=== PATIENT | male | born 1995 | race American Indian/Alaskan Native ===

== ENCOUNTER 2019-07-16 19:43 | Inpatient (IN) | payer BC ==
[2019-07-16] MEDS ORDERED: SODIUM CHLORIDE 0.9% 1000 ML 1,000 ML IV ONE ×2 (21:04→23:31)
--- NOTE | 2019-07-16 21:12 | Event Note ---
ED Screening Note Date of service: 07/16/19 Time: 21:02 ED Screening Note: 23 y o male sharan no PMH was sent here from Urgent care for glucose > 600 pt states x 2 days he has been feeling lethargic denies any pain This initial assessment/diagnostic orders/clinical plan/treatment(s) is/are subject to change based on patients health status, clinical progression and re- assessment by fellow clinical providers in the ED. Further treatment and workup at subsequent clinical providers discretion. Patient/guardian urged not to elope from the ED as their condition may be serious if not clinically assessed and managed. Initial orders include: labs, ivf main side eval
--- NOTE | 2019-07-16 21:36 | Emergency Department Report ---
ED General Adult HPI - General Chief complaint: Hyperglycemia Stated complaint: HIGH BP/HIGH SUGAR Time Seen by Provider: 07/16/19 21:33 Source: patient, family, RN notes reviewed Mode of arrival: Ambulatory Limitations: No Limitations - History of Present Illness Initial comments: During the history and physical, I am screen machine operator by nurse Yesenia Rey The patient is a 23-year-old gentleman. The patient is not known to this provider previously. The patient does not have a primary care doctor, he does not have chronic medical conditions that he is aware of. He is sent to the ER by a local urgent care center for weakness, nausea vomiting and hyperglycemia. Patient endorses thirst, weakness, cramping, constipation, malaise and fatigue. Symptoms constant, getting worse, do not have exacerbating or relieving factors that he is aware of. He does not have a history of diabetes that he is aware of. He states that he is "too weak to talk." He then states that he is thirsty. -: Gradual, days(s) Consistency: constant Improves with: other Worsens with: other - Related Data Allergies Allergy/AdvReac Type Severity Reaction Status Date / Time No Known Allergies Allergy Unverified 07/16/19 21:39 ED Review of Systems ROS: Stated complaint: HIGH BP/HIGH SUGAR Other details as noted in HPI Constitutional: malaise Eyes: denies: eye discharge ENT: denies: congestion Respiratory: denies: wheezing Cardiovascular: denies: syncope Gastrointestinal: nausea Genitourinary: denies: dysuria Musculoskeletal: myalgia Neurological: weakness ED Past Medical Hx - Past Medical History Previous Medical History?: No - Surgical History Past Surgical History?: No - Social History Smoking Status: Unknown if ever smoked ED Physical Exam - General Limitations: Physical Limitation General appearance: alert, anxious, obese - Head Head exam: Present: atraumatic, normocephalic - Eye Eye exam: Present: normal appearance, EOMI. Absent: nystagmus - ENT ENT exam: Present: normal exam, mucous membranes dry, normal external ear exam - Neck Neck exam: Present: normal inspection, full ROM. Absent: tenderness, meningismus - Respiratory Respiratory exam: Present: normal lung sounds bilaterally. Absent: respiratory distress - Cardiovascular Cardiovascular Exam: Present: normal rhythm, tachycardia, normal heart sounds. Absent: systolic murmur, diastolic murmur, rubs, gallop - GI/Abdominal GI/Abdominal exam: Present: soft. Absent: distended, tenderness, guarding, rebound, rigid, pulsatile mass - Rectal Rectal exam: Present: deferred - Extremities Exam Extremities exam: Present: normal inspection, full ROM. Absent: pedal edema - Back Exam Back exam: Present: normal inspection. Absent: tenderness, CVA tenderness (R), CVA tenderness (L), paraspinal tenderness, vertebral tenderness - Neurological Exam Neurological exam: Present: alert, other (there is no facial droop. The tongue is midline. The extraocular movements are intact bilaterally. Speaking in full sentences. Minimal elevation of the base of the tongue. There is 5 out of 5 strength in the bilateral upper and lower extremities, and sensation is intact to light touch in the bilateral upper and lower extremities. Appropriate insight.) - Psychiatric Psychiatric exam: Present: flat affect - Skin Skin exam: Present: warm, dry, intact, normal color. Absent: rash ED Course Vital Signs 07/16/19 21:09 Temperature 98.2 F Pulse Rate 129 H Respiratory 20 Rate Blood Pressure 155/105 [Right] O2 Sat by Pulse 95 Oximetry ED Medical Decision Making - Lab Data Result diagrams: 07/16/19 21:36 07/16/19 21:36 Vital Signs 07/16/19 21:09 Temperature 98.2 F Pulse Rate 129 H Respiratory 20 Rate Blood Pressure 155/105 [Right] O2 Sat by Pulse 95 Oximetry Lab Results 07/16/19 07/16/19 07/16/19 Range/Units 21:12 21:36 21:36 WBC 14.2 H (4.5-11.0) K/mm3 RBC 6.64 H (3.65-5.03) M/mm3 Hgb 17.2 H (11.8-15.2) gm/dl Hct 57.5 H (35.5-45.6) % MCV 87 (84-94) fl MCH 26 L (28-32) pg MCHC 30 L (32-34) % RDW 15.9 H (13.2-15.2) % Plt Count 301 (140-440) K/mm3 Lymph % (Auto) 8.3 L (13.4-35.0) % [place] % (Auto) 5.6 (0.0-7.3) % Eos % (Auto) 0.0 (0.0-4.3) % Baso % (Auto) 0.5 (0.0-1.8) % Lymph # 1.2 (1.2-5.4) K/mm3 [place] # 0.8 (0.0-0.8) K/mm3 Eos # 0.0 (0.0-0.4) K/mm3 Baso # 0.1 (0.0-0.1) K/mm3 Seg Neutrophils % 85.6 H (40.0-70.0) % Seg Neutrophils # 12.2 H (1.8-7.7) K/mm3 VBG pH (7.320-7.420) Sodium 135 L (137-145) mmol/L Potassium 5.5 H (3.6-5.0) mmol/L Chloride 87.6 L (98-107) mmol/L Carbon Dioxide 12 L (22-30) mmol/L Anion Gap 41 mmol/L BUN 45 H (9-20) mg/dL Creatinine 2.6 H (0.8-1.5) mg/dL Estimated GFR 31 ml/min BUN/Creatinine Ratio 17 % Glucose 1296 H* (75-100) mg/dL POC Glucose > 500 H (70-105) Calcium 10.8 H (8.4-10.2) mg/dL Magnesium (1.7-2.3) mg/dL Total Bilirubin 0.30 (0.1-1.2) mg/dL AST 35 (5-40) units/L ALT 44 (7-56) units/L Alkaline Phosphatase 144 H (35-129) units/L Total Creatine Kinase (55-170) units/L Total Protein 9.8 H (6.3-8.2) g/dL Albumin 4.9 (3.9-5) g/dL Albumin/Globulin Ratio 1.0 % Lipase (13-60) units/L 07/16/19 07/16/19 07/16/19 Range/Units 21:36 21:36 21:52 WBC (4.5-11.0) K/mm3 RBC (3.65-5.03) M/mm3 Hgb (11.8-15.2) gm/dl Hct (35.5-45.6) % MCV (84-94) fl MCH (28-32) pg MCHC (32-34) % RDW (13.2-15.2) % Plt Count (140-440) K/mm3 Lymph % (Auto) (13.4-35.0) % [place] % (Auto) (0.0-7.3) % Eos % (Auto) (0.0-4.3) % Baso % (Auto) (0.0-1.8) % Lymph # (1.2-5.4) K/mm3 [place] # (0.0-0.8) K/mm3 Eos # (0.0-0.4) K/mm3 Baso # (0.0-0.1) K/mm3 Seg Neutrophils % (40.0-70.0) % Seg Neutrophils # (1.8-7.7) K/mm3 VBG pH 7.276 L (7.320-7.420) Sodium (137-145) mmol/L Potassium (3.6-5.0) mmol/L Chloride (98-107) mmol/L Carbon Dioxide (22-30) mmol/L Anion Gap mmol/L BUN (9-20) mg/dL Creatinine (0.8-1.5) mg/dL Estimated GFR ml/min BUN/Creatinine Ratio % Glucose (75-100) mg/dL POC Glucose (70-105) Calcium (8.4-10.2) mg/dL Magnesium 4.00 H (1.7-2.3) mg/dL Total Bilirubin (0.1-1.2) mg/dL AST (5-40) units/L ALT (7-56) units/L Alkaline Phosphatase (35-129) units/L Total Creatine Kinase 827 H (55-170) units/L Total Protein (6.3-8.2) g/dL Albumin (3.9-5) g/dL Albumin/Globulin Ratio % Lipase 38 (13-60) units/L - EKG Data -: EKG Interpreted by Ks EKG shows normal: sinus rhythm Rate: tachycardia - EKG Data When compared to previous EKG there are: previous EKG unavailable 07/16/19 23:05 There is no prior EKG available for comparison. The EKG shows a sinus tachycardia, left axis deviation, atrial enlargement, high left ventricular voltage, the EKG is abnormal, it is not consistent with ST elevation myocardial infarction. - Medical Decision Making Differential diagnosis, including but not limited to: Diabetic ketoacidosis, diabetes with hyperosmolar state, dehydration, prerenal insufficiency Assessment and plan: 23-year-old gentleman found to be in diabetic ketoacidosis, manifest by acidotic venous pH, anion gap acidosis, glucose greater than 1200. Patient critically ill, meets criteria for hospitalization. IV fluids, insulin drip ordered. Discussed plan of care for admission with patient and family who verbalized understanding and who are amenable to this plan of care. Extensive discussion had with patient and family regarding need for diet and left cell modifications, once initial stabilization has taken place. Family verbalizes understanding. Hyperkalemia reviewed and appreciated, this will improve with fluids and with insulin therapy. Hospital physician, Dr. William to admit patient to the medical service. Critical Care Time: Yes Critical care time in (mins) excluding proc time.: 35 Critical care attestation.: If time is entered above; I have spent that time in minutes in the direct care of this critically ill patient, excluding procedure time. ED Disposition Clinical Impression: DKA (diabetic ketoacidoses), CHERISE (acute kidney injury) Disposition: DC-09 OP ADMIT IP TO THIS HOSP Is pt being admited?: Yes Does the pt Need Aspirin: No Condition: Critical Instructions: Diabetic Ketoacidosis (ED)
[2019-07-16 21:49] LABS: Basophils # (Auto) 0.1 K/mm3 (0.0-0.1); Basophils % (Auto) 0.5 % (0.0-1.8); Lymphocytes # (Auto) 1.2 K/mm3 (1.2-5.4); Lymphocytes % (Auto) 8.3 % (13.4-35.0); Mean Corpuscular HGB Conc 30 % (32-34); Mean Corpuscular Volume 87 fl (84-94); Monocytes # (Auto) 0.8 K/mm3 (0.0-0.8); Monocytes % (Auto) 5.6 % (0.0-7.3); Platelet Count 301 K/mm3 (140-440); Red Blood Count 6.64 M/mm3 (3.65-5.03); Red Cell Distribution Width 15.9 % (13.2-15.2)
[2019-07-16 21:55] LABS: Hematocrit 57.5 % (35.5-45.6); Hemoglobin 17.2 gm/dl (11.8-15.2)
[2019-07-16 22:11] LABS: Albumin 4.9 g/dL (3.9-5); Calcium 10.8 mg/dL (8.4-10.2)
[2019-07-16] MEDS ORDERED: SODIUM CHLORIDE 0.9% 1000 ML 2,000 ML IV ONE (22:58)
[2019-07-16] MEDS ORDERED: INSULIN REGULAR, HUMAN 100 UNITS/1 ML IV ONE (22:59)
[2019-07-16] MEDS ORDERED: DEXTROSE 50% IN WATER (25GM) 50 ML SYRINGE IV PRN (22:59)
[2019-07-16] MEDS ORDERED: ACETAMINOPHEN 325 MG TAB PO PRN (23:29)
[2019-07-16] MEDS ORDERED: ONDANSETRON 4 MG/2 ML INJ IV PRN (23:29)
[2019-07-16] MEDS ORDERED: SODIUM CHLORIDE 0.9% 1000 ML 1,000 ML IV SCH (23:30)
--- NOTE | 2019-07-16 23:39 | History and Physical Report ---
History of Present Illness Date of examination: 07/16/19 History of present illness: 23-year-old man with obesity comes emergency room with complaints of generalized weakness x2 weeks. Also complains of nausea vomiting, frequent urination, dry mouth, increased thirst and decreased appetite. He admits to weight loss but unable to quantify, also admits to blurry vision. Patient was found to have new onset diabetes/dka and is being admitted for further management Review of systems Constitutional: no weight loss, chills, fever Ears, eyes, nose, mouth and throat: no nasal congestion, no nasal discharge, no sinus pressure, no vision change, no red eye. Neck: No neck pain or rigidity. Cardiovascular: no palpitations, chest pain Respiratory: no cough, shortness of breath Gastrointestinal: no hematochezia, abdominal pain Genitourinary : no frequency , no hematuria Musculoskeletal: no joint swelling or muscle ache Integumentary: no rash, no pruritis Neurological: no parathesias, no focal weakness Endocrine: no cold or heat intolerance, no polyuria or polydipsia Hematologic/Lymphatic: no easy bruising, no easy bleeding, no gland swelling Allergic/Immunologic: no urticaria, no angioedema. PAST MEDICAL HISTORY: obesity PAST SURGICAL HISTORY: None SOCIAL HISTORY: Denies alcohol, drugs, tobacco FAMILY HISTORY: Hypertension, diabetes Medications and Allergies Allergies Allergy/AdvReac Type Severity Reaction Status Date / Time No Known Allergies Allergy Unverified 07/16/19 21:39 Home Medications Medication Instructions Recorded Confirmed Last Taken Type No Known Home Medications [No 07/17/19 07/17/19 Unknown History Reported Home Medications] Active Meds: Active Medications Acetaminophen (Tylenol) 650 mg PO Q4H PRN PRN Reason: Pain MILD(1-3)/Fever >100.5/WANG Dextrose (D50w (25gm) Syringe) 0 ml IV Q30MIN PRN; Protocol PRN Reason: Hypoglycemia Enoxaparin Sodium (Enoxaparin) 30 mg SUB-Q QDAY MARIAA Insulin Human Regular 100 (units/ Sodium Chloride) 100 mls @ 1 mls/hr IV TITR MARIAA; Protocol Sodium Chloride (Nacl 0.9% 1000 Ml) 1,000 mls @ 150 mls/hr IV DIRECT MARIAA Dextrose/Sodium Chloride (D5/0.45ns) 1,000 mls @ 150 mls/hr IV DIRECT MARIAA Sodium Chloride (Nacl 0.9% 1000 Ml) 1,000 mls @ 999 mls/hr IV ONCE ONE Stop: 07/17/19 00:31 Ondansetron HCl (Zofran) 4 mg IV Q8H PRN PRN Reason: Nausea And Vomiting Sodium Chloride (Sodium Chloride Flush Syringe 10 Ml) 10 ml IV PRN NR Stop: 07/17/19 22:59 Sodium Chloride (Sodium Chloride Flush Syringe 10 Ml) 10 ml IV BID MARIAA Sodium Chloride (Sodium Chloride Flush Syringe 10 Ml) 10 ml IV PRN PRN PRN Reason: LINE FLUSH Exam - Physical Exam Narrative exam: General Apperance: The patient lying in bed, breathing comfortable HEENT: Normocephalic, atraumatic. Pupils equally round and reactive to light, EOMI, no sclericterus or JVD or thyromegaly or nodule. , no carotid bruit, mucous membranes dry, no exudate or erythema Heart: S1-S2, regular is rhythm Lungs: clear bilaterally, breathing comfortable Abdomen: Positive bowel sounds, soft, nontender, nondistended, no organomegaly Extremities: amputation of the left forearm, No edema cyanosis clubbing Skin: no rash, nodule, warm and dry Neuro: cranial nerves 2-12 intact, speech is fluent, motor/sensory intact - Constitutional Vitals: Temp Pulse Resp BP Pulse Ox 98.2 F 111 H 18 150/94 94 07/16/19 21:09 07/16/19 23:15 07/16/19 23:15 07/16/19 23:15 07/16/19 23:15 Results - Labs CBC & Chem 7: 07/16/19 21:36 07/17/19 00:55 Labs: Abnormal lab results 07/16/19 07/16/19 07/16/19 Range/Units 21:12 21:36 21:36 WBC 14.2 H (4.5-11.0) K/mm3 RBC 6.64 H (3.65-5.03) M/mm3 Hgb 17.2 H (11.8-15.2) gm/dl Hct 57.5 H (35.5-45.6) % MCH 26 L (28-32) pg MCHC 30 L (32-34) % RDW 15.9 H (13.2-15.2) % Lymph % (Auto) 8.3 L (13.4-35.0) % Seg Neutrophils % 85.6 H (40.0-70.0) % Seg Neutrophils # 12.2 H (1.8-7.7) K/mm3 VBG pH (7.320-7.420) Sodium 135 L (137-145) mmol/L Potassium 5.5 H (3.6-5.0) mmol/L Chloride 87.6 L (98-107) mmol/L Carbon Dioxide 12 L (22-30) mmol/L BUN 45 H (9-20) mg/dL Creatinine 2.6 H (0.8-1.5) mg/dL Glucose 1296 H* (75-100) mg/dL POC Glucose > 500 H (70-105) Calcium 10.8 H (8.4-10.2) mg/dL Magnesium (1.7-2.3) mg/dL Alkaline Phosphatase 144 H (35-129) units/L Total Creatine Kinase (55-170) units/L Total Protein 9.8 H (6.3-8.2) g/dL 07/16/19 07/16/19 07/16/19 Range/Units 21:36 21:36 21:52 WBC (4.5-11.0) K/mm3 RBC (3.65-5.03) M/mm3 Hgb (11.8-15.2) gm/dl Hct (35.5-45.6) % MCH (28-32) pg MCHC (32-34) % RDW (13.2-15.2) % Lymph % (Auto) (13.4-35.0) % Seg Neutrophils % (40.0-70.0) % Seg Neutrophils # (1.8-7.7) K/mm3 VBG pH 7.276 L (7.320-7.420) Sodium (137-145) mmol/L Potassium (3.6-5.0) mmol/L Chloride (98-107) mmol/L Carbon Dioxide (22-30) mmol/L BUN (9-20) mg/dL Creatinine (0.8-1.5) mg/dL Glucose (75-100) mg/dL POC Glucose (70-105) Calcium (8.4-10.2) mg/dL Magnesium 4.00 H (1.7-2.3) mg/dL Alkaline Phosphatase (35-129) units/L Total Creatine Kinase 827 H (55-170) units/L Total Protein (6.3-8.2) g/dL Assessment and Plan Assessment DKA /new onset diabetes/Metabolic acidosis Start DKA protocol with insulin drip, IV fluid Monitor serial chemistries, check hemoglobin A1c Consult critical care, dietitian Elevated blood pressure without a history of hypertension Start IV hydralazine as needed If consistently elevated, start antihypertensive Acute renal insufficiency Continue IV fluid, monitor kidney function Hyperkalemia On insulin drip, monitor potassium level Leukocytosis Most likely stress-induced, monitor
[2019-07-16] MEDS ORDERED: D5W/0.45% NACL 1,000 ML IV SCH (23:45)
[2019-07-16] MEDS: INSULIN REGULAR, HUMAN 100 UNITS in SODIUM CHLORIDE 0.9% 99 ML IV SCH (23:52)
[2019-07-17 00:17] LABS: Bacteria,Urine 1+ /HPF (Negative); Bilirubin,Urine NEG (Negative); Blood,Urine LG (Negative); Color,Urine Straw (Yellow); Mucus,Urine FEW /HPF; Urobilinogen,Urine < 2.0 mg/dL (<2.0)
[2019-07-17 00:30] LABS: Calcium 10.3 mg/dL (8.4-10.2)
[2019-07-17] MEDS ORDERED: hydrALAZINE 20 MG/1 ML INJ IV PRN ×2 (00:41→00:52)
[2019-07-17] MEDS ORDERED: SODIUM CHLORIDE 0.9% 1000 ML 2,000 ML ONE (00:45)
[2019-07-17] MEDS: INSULIN REGULAR, HUMAN 100 UNITS in SODIUM CHLORIDE 0.9% 99 ML IV SCH ×2 (01:10→13:14)
[2019-07-17] MEDS ORDERED: hydrALAZINE 20 MG/1 ML INJ ONE (01:31)
[2019-07-17 03:23] LABS: Calcium 9.6 mg/dL (8.4-10.2)
[2019-07-17 06:47] LABS: BUN/Creatinine Ratio 8; Blood Urea Nitrogen 9 mg/dL (9-20); Hemolysis Index 6
[2019-07-17 08:24] LABS: BUN/Creatinine Ratio 16; Blood Urea Nitrogen 28 mg/dL (9-20); Hemolysis Index 5
--- NOTE | 2019-07-17 09:04 | Progress Note ---
Assessment and Plan Assessment and plan: Patient is a 23 yo man without any chronic medical problems who presents to [facility] ED with polyuria, polydipsia and polyphagia. He was found to have new onset uncontrolled DM resulting in DKA. Hemoglobin A1C is 12.5 DKA /new onset diabetes/Metabolic acidosis Start DKA protocol with insulin drip, IV fluid Monitor serial chemistries, check hemoglobin A1c Consult critical care, dietitian Elevated blood pressure without a history of hypertension Start IV hydralazine as needed If consistently elevated, start antihypertensive Acute renal insufficiency, vasomotor nephropathy Continue IV fluid, monitor kidney function Hyperkalemia On insulin drip, monitor potassium level SIRS, non infectious without organ dysfunction, poa with suspected reactive Leukocytosis and tachycardia check CXR blood culture UA was negative for infection Obesity, bmi 35.7 lifestyle modifications education done Hyponatremia due to hyperglycemia on IV, monitor bmp closely Issues: last BMP may not be accurate because in 2 hours the sodium level jumped from 132 to 160. Await repeat labs. Leukocytosis should be worked up to rule out infection. CCT 32 minutes History Interval history: Patient was seen and examined. Follow-up on current diagnosis of DKA. No overnight events reported to me. Patient denies any chest pain, shortness breath, nausea/vomiting or severe headaches. Imaging, nursing note, chart, labs and old chart reviewed. Discussed with patient. Hospitalist Physical - Physical exam Narrative exam: Gen: WDWN, NAD, Awake, Alert, Orientated HEENT: NCAT, EOMI, PERRL, OP Clear Neck: supple, no adenopathy, no thyromegaly, no JVD CVS/Heart: Regular tachycardia, normal S1S2, pulses present bilaterally Chest/Lungs: CTA B, Symmetrical chest expansion, good air entry bilaterally GI/Abdomen: soft, NTND, good bowel sounds, no guarding or rebound /Bladder: no suprapubic tenderness, no CVA or paraspinal tenderness Extermity/Skin: no c/c/e, no obvious rash MSK: FROM x 4 Neuro: CN 2-12 grossly intact, no new focal deficits Psych: calm - Constitutional Vitals: Temp Pulse Resp BP Pulse Ox 98.2 F 123 H 14 157/107 99 07/17/19 02:50 07/17/19 06:01 07/17/19 06:01 07/17/19 06:01 07/17/19 08:13 Results - Labs CBC & Chem 7: 07/16/19 21:36 07/17/19 14:35 Labs: Laboratory Last Values WBC 14.2 K/mm3 (4.5-11.0) H 07/16/19 21:36 RBC 6.64 M/mm3 (3.65-5.03) H 07/16/19 21:36 Hgb 17.2 gm/dl (11.8-15.2) H 07/16/19 21:36 Hct 57.5 % (35.5-45.6) H 07/16/19 21:36 MCV 87 fl (84-94) 07/16/19 21:36 MCH 26 pg (28-32) L 07/16/19 21:36 MCHC 30 % (32-34) L 07/16/19 21:36 RDW 15.9 % (13.2-15.2) H 07/16/19 21:36 Plt Count 301 K/mm3 (140-440) 07/16/19 21:36 Lymph % (Auto) 8.3 % (13.4-35.0) L 07/16/19 21:36 [place] % (Auto) 5.6 % (0.0-7.3) 07/16/19 21:36 Eos % (Auto) 0.0 % (0.0-4.3) 07/16/19 21:36 Baso % (Auto) 0.5 % (0.0-1.8) 07/16/19 21:36 Lymph # 1.2 K/mm3 (1.2-5.4) 07/16/19 21:36 [place] # 0.8 K/mm3 (0.0-0.8) 07/16/19 21:36 Eos # 0.0 K/mm3 (0.0-0.4) 07/16/19 21:36 Baso # 0.1 K/mm3 (0.0-0.1) 07/16/19 21:36 Seg Neutrophils % 85.6 % (40.0-70.0) H 07/16/19 21:36 Seg Neutrophils # 12.2 K/mm3 (1.8-7.7) H 07/16/19 21:36 VBG pH 7.276 (7.320-7.420) L 07/16/19 21:36 Sodium 160 mmol/L (137-145) H D 07/17/19 07:10 Potassium 4.2 mmol/L (3.6-5.0) 07/17/19 07:10 Chloride 123.7 mmol/L (98-107) H 07/17/19 07:10 Carbon Dioxide 20 mmol/L (22-30) L 07/17/19 07:10 Anion Gap 21 mmol/L 07/17/19 07:10 BUN 28 mg/dL (9-20) H 07/17/19 07:10 Creatinine 1.7 mg/dL (0.8-1.5) H 07/17/19 07:10 Estimated GFR > 60 ml/min 07/17/19 07:10 BUN/Creatinine Ratio 16 % 07/17/19 07:10 Glucose 340 mg/dL (75-100) H 07/17/19 07:10 POC Glucose 231 (70-105) H 07/17/19 09:07 Hemoglobin A1c 12.5 % (4-6) H 07/16/19 23:46 Calcium 10.0 mg/dL (8.4-10.2) 07/17/19 07:10 Phosphorus 2.30 mg/dL (2.5-4.5) L D 07/17/19 05:09 Magnesium 3.40 mg/dL (1.7-2.3) H 07/17/19 05:09 Total Bilirubin 0.30 mg/dL (0.1-1.2) 07/16/19 21:36 AST 35 units/L (5-40) 07/16/19 21:36 ALT 44 units/L (7-56) 07/16/19 21:36 Alkaline Phosphatase 144 units/L (35-129) H 07/16/19 21:36 Total Creatine Kinase 827 units/L (55-170) H 07/16/19 21:36 Total Protein 9.8 g/dL (6.3-8.2) H 07/16/19 21:36 Albumin 4.9 g/dL (3.9-5) 07/16/19 21:36 Albumin/Globulin Ratio 1.0 % 07/16/19 21:36 Lipase 38 units/L (13-60) 07/16/19 21:36 Urine Color Straw (Yellow) 07/16/19 23:07 Urine Turbidity Clear (Clear) 07/16/19 23:07 Urine pH 5.0 (5.0-7.0) 07/16/19 23:07 Ur Specific [place] 1.028 (1.003-1.030) 07/16/19 23:07 Urine Protein 100 mg/dl mg/dL (Negative) 07/16/19 23:07 Urine Glucose (UA) >=500 mg/dL (Negative) 07/16/19 23:07 Urine Ketones Tr mg/dL (Negative) 07/16/19 23:07 Urine Blood Lg (Negative) 07/16/19 23:07 Urine Nitrite Neg (Negative) 07/16/19 23:07 Urine Bilirubin Neg (Negative) 07/16/19 23:07 Urine Urobilinogen < 2.0 mg/dL (<2.0) 07/16/19 23:07 Ur Leukocyte Esterase Neg (Negative) 07/16/19 23:07 Urine WBC (Auto) 1.0 /HPF (0.0-6.0) 07/16/19 23:07 Urine RBC (Auto) 5.0 /HPF (0.0-6.0) 07/16/19 23:07 Urine Bacteria (Auto) 1+ /HPF (Negative) 07/16/19 23:07 Urine Mucus Few /HPF 07/16/19 23:07 Active Medications - Current Medications Current Medications: Generic Name Dose Route Start Last Admin Trade Name Freq PRN Reason Stop Dose Admin Acetaminophen 650 mg 07/16/19 23:29 Tylenol PO Q4H PRN Pain MILD(1-3)/Fever >100.5/WANG Dextrose 0 ml 07/16/19 22:59 D50w (25gm) Syringe IV Q30MIN PRN Hypoglycemia Protocol Hydralazine HCl 5 mg 07/17/19 00:52 07/17/19 01:30 Apresoline IV 5 mg Q6H PRN Administration Hypertension Insulin Human Regular 100 100 mls @ 1 mls/hr 07/16/19 23:00 07/17/19 08:58 units/ Sodium Chloride IV 5 units/hr TITR MARIAA 5 mls/hr Titration Protocol 1 UNITS/HR Sodium Chloride 1,000 mls @ 150 mls/hr 07/16/19 23:30 07/17/19 03:35 Nacl 0.9% 1000 Ml IV 150 mls/hr DIRECT MARIAA Administration Dextrose/Sodium Chloride 1,000 mls @ 150 mls/hr 07/16/19 23:45 D5/0.45ns IV DIRECT MARIAA Ondansetron HCl 4 mg 07/16/19 23:29 Zofran IV Q8H PRN Nausea And Vomiting Sodium Chloride 10 ml 07/16/19 23:00 Sodium Chloride Flush Syringe 10 Ml IV 07/17/19 22:59 PRN NR Sodium Chloride 10 ml 07/17/19 10:00 Sodium Chloride Flush Syringe 10 Ml IV BID AMRIAA Sodium Chloride 10 ml 07/16/19 23:29 Sodium Chloride Flush Syringe 10 Ml IV PRN PRN LINE FLUSH
[2019-07-17] MEDS ORDERED: ENOXAPARIN 40 MG/0.4 ML INJ SUB-Q SCH (10:00)
[2019-07-17] MEDS ORDERED: POTASSIUM CHLORIDE IV SCH (11:00)
[2019-07-17] MEDS ORDERED: WATER IV SCH (11:00)
[2019-07-17] MEDS ORDERED: DEXTROSE 5% IV SCH (11:00)
--- NOTE | 2019-07-17 11:09 | Consultation ---
History of Present Illness - Reason for Consult Consult date: 07/17/19 DKA Requesting physician: ASHISH AYERS - History of Present Illness 23 y/o male with newly diagnosed diabetes admitted with DKA. No further history. Past History Past Medical History: other Past Surgical History: Other Social history: other Family history: other Medications and Allergies Allergies Allergy/AdvReac Type Severity Reaction Status Date / Time No Known Allergies Allergy Unverified 07/16/19 21:39 Home Medications Medication Instructions Recorded Confirmed Last Taken Type No Known Home Medications [No 07/17/19 07/17/19 Unknown History Reported Home Medications] Active Meds: Active Medications Acetaminophen (Tylenol) 650 mg PO Q4H PRN PRN Reason: Pain MILD(1-3)/Fever >100.5/WANG Dextrose (D50w (25gm) Syringe) 0 ml IV Q30MIN PRN; Protocol PRN Reason: Hypoglycemia Hydralazine HCl (Apresoline) 5 mg IV Q6H PRN PRN Reason: Hypertension Last Admin: 07/17/19 01:30 Dose: 5 mg Documented by: Insulin Human Regular 100 (units/ Sodium Chloride) 100 mls @ 1 mls/hr IV TITR MARIAA; Protocol Last Titration: 07/17/19 10:00 Dose: 4 units/hr, 4 mls/hr Documented by: Sodium Chloride (Nacl 0.9% 1000 Ml) 1,000 mls @ 150 mls/hr IV DIRECT MARIAA Last Infusion: 07/17/19 10:20 Dose: Infused Documented by: Potassium Chloride 10 meq/ (Dextrose) 1,005 mls @ 125 mls/hr IV DIRECT MARIAA Ondansetron HCl (Zofran) 4 mg IV Q8H PRN PRN Reason: Nausea And Vomiting Sodium Chloride (Sodium Chloride Flush Syringe 10 Ml) 10 ml IV PRN NR Stop: 07/17/19 22:59 Sodium Chloride (Sodium Chloride Flush Syringe 10 Ml) 10 ml IV BID MARIAA Sodium Chloride (Sodium Chloride Flush Syringe 10 Ml) 10 ml IV PRN PRN PRN Reason: LINE FLUSH Review of Systems All systems: negative Exam - Constitutional Vitals: Temp Pulse Resp BP Pulse Ox 98.2 F 123 H 14 157/107 99 07/17/19 02:50 07/17/19 06:01 07/17/19 06:01 07/17/19 06:01 07/17/19 08:13 General appearance: Present: no acute distress, well-nourished - EENT Eyes: Present: PERRL, EOM intact ENT: hearing intact, clear oral mucosa, dentition normal - Neck Neck: Present: supple, normal ROM - Respiratory Respiratory effort: normal Respiratory: bilateral: CTA - Cardiovascular Rhythm: regular Heart Sounds: Present: S1 & S2 - Extremities Extremities: no ischemia - Abdominal General gastrointestinal: Present: soft, normal bowel sounds Male genitourinary: Present: deferred - Rectal Rectal Exam: deferred - Musculoskeletal Musculoskeletal: strength equal bilaterally Results - Labs CBC & Chem 7: 07/16/19 21:36 07/17/19 07:10 Labs: Abnormal lab results 07/16/19 07/16/19 07/16/19 Range/Units 21:12 21:36 21:36 WBC 14.2 H (4.5-11.0) K/mm3 RBC 6.64 H (3.65-5.03) M/mm3 Hgb 17.2 H (11.8-15.2) gm/dl Hct 57.5 H (35.5-45.6) % MCH 26 L (28-32) pg MCHC 30 L (32-34) % RDW 15.9 H (13.2-15.2) % Lymph % (Auto) 8.3 L (13.4-35.0) % Seg Neutrophils % 85.6 H (40.0-70.0) % Seg Neutrophils # 12.2 H (1.8-7.7) K/mm3 VBG pH (7.320-7.420) Sodium 135 L (137-145) mmol/L Potassium 5.5 H (3.6-5.0) mmol/L Chloride 87.6 L (98-107) mmol/L Carbon Dioxide 12 L (22-30) mmol/L BUN 45 H (9-20) mg/dL Creatinine 2.6 H (0.8-1.5) mg/dL Glucose 1296 H* (75-100) mg/dL POC Glucose > 500 H (70-105) Hemoglobin A1c (4-6) % Calcium 10.8 H (8.4-10.2) mg/dL Phosphorus (2.5-4.5) mg/dL Magnesium (1.7-2.3) mg/dL Alkaline Phosphatase 144 H (35-129) units/L Total Creatine Kinase (55-170) units/L Total Protein 9.8 H (6.3-8.2) g/dL 07/16/19 07/16/19 07/16/19 Range/Units 21:36 21:36 21:52 WBC (4.5-11.0) K/mm3 RBC (3.65-5.03) M/mm3 Hgb (11.8-15.2) gm/dl Hct (35.5-45.6) % MCH (28-32) pg MCHC (32-34) % RDW (13.2-15.2) % Lymph % (Auto) (13.4-35.0) % Seg Neutrophils % (40.0-70.0) % Seg Neutrophils # (1.8-7.7) K/mm3 VBG pH 7.276 L (7.320-7.420) Sodium (137-145) mmol/L Potassium (3.6-5.0) mmol/L Chloride (98-107) mmol/L Carbon Dioxide (22-30) mmol/L BUN (9-20) mg/dL Creatinine (0.8-1.5) mg/dL Glucose (75-100) mg/dL POC Glucose (70-105) Hemoglobin A1c (4-6) % Calcium (8.4-10.2) mg/dL Phosphorus (2.5-4.5) mg/dL Magnesium 4.00 H (1.7-2.3) mg/dL Alkaline Phosphatase (35-129) units/L Total Creatine Kinase 827 H (55-170) units/L Total Protein (6.3-8.2) g/dL 07/16/19 07/16/19 07/16/19 Range/Units 23:46 23:46 23:46 WBC (4.5-11.0) K/mm3 RBC (3.65-5.03) M/mm3 Hgb (11.8-15.2) gm/dl Hct (35.5-45.6) % MCH (28-32) pg MCHC (32-34) % RDW (13.2-15.2) % Lymph % (Auto) (13.4-35.0) % Seg Neutrophils % (40.0-70.0) % Seg Neutrophils # (1.8-7.7) K/mm3 VBG pH (7.320-7.420) Sodium (137-145) mmol/L Potassium 6.0 H (3.6-5.0) mmol/L Chloride 97.5 L (98-107) mmol/L Carbon Dioxide 11 L (22-30) mmol/L BUN 44 H (9-20) mg/dL Creatinine 2.6 H (0.8-1.5) mg/dL Glucose 1057 H* (75-100) mg/dL POC Glucose (70-105) Hemoglobin A1c 12.5 H (4-6) % Calcium 10.3 H (8.4-10.2) mg/dL Phosphorus 6.30 H (2.5-4.5) mg/dL Magnesium 3.80 H (1.7-2.3) mg/dL Alkaline Phosphatase (35-129) units/L Total Creatine Kinase (55-170) units/L Total Protein (6.3-8.2) g/dL 07/17/19 07/17/19 07/17/19 Range/Units 00:55 01:04 02:49 WBC (4.5-11.0) K/mm3 RBC (3.65-5.03) M/mm3 Hgb (11.8-15.2) gm/dl Hct (35.5-45.6) % MCH (28-32) pg MCHC (32-34) % RDW (13.2-15.2) % Lymph % (Auto) (13.4-35.0) % Seg Neutrophils % (40.0-70.0) % Seg Neutrophils # (1.8-7.7) K/mm3 VBG pH (7.320-7.420) Sodium 149 H (137-145) mmol/L Potassium (3.6-5.0) mmol/L Chloride 108.4 H (98-107) mmol/L Carbon Dioxide 13 L (22-30) mmol/L BUN 38 H (9-20) mg/dL Creatinine 2.2 H (0.8-1.5) mg/dL Glucose 710 H* (75-100) mg/dL POC Glucose > 500 H 492 H (70-105) Hemoglobin A1c (4-6) % Calcium (8.4-10.2) mg/dL Phosphorus (2.5-4.5) mg/dL Magnesium (1.7-2.3) mg/dL Alkaline Phosphatase (35-129) units/L Total Creatine Kinase (55-170) units/L Total Protein (6.3-8.2) g/dL 07/17/19 07/17/19 07/17/19 Range/Units 04:09 05:00 05:09 WBC (4.5-11.0) K/mm3 RBC (3.65-5.03) M/mm3 Hgb (11.8-15.2) gm/dl Hct (35.5-45.6) % MCH (28-32) pg MCHC (32-34) % RDW (13.2-15.2) % Lymph % (Auto) (13.4-35.0) % Seg Neutrophils % (40.0-70.0) % Seg Neutrophils # (1.8-7.7) K/mm3 VBG pH (7.320-7.420) Sodium 132 L D (137-145) mmol/L Potassium (3.6-5.0) mmol/L Chloride (98-107) mmol/L Carbon Dioxide 20 L D (22-30) mmol/L BUN (9-20) mg/dL Creatinine (0.8-1.5) mg/dL Glucose 114 H (75-100) mg/dL POC Glucose 483 H (70-105) Hemoglobin A1c (4-6) % Calcium (8.4-10.2) mg/dL Phosphorus 2.30 L D (2.5-4.5) mg/dL Magnesium (1.7-2.3) mg/dL Alkaline Phosphatase (35-129) units/L Total Creatine Kinase (55-170) units/L Total Protein (6.3-8.2) g/dL 07/17/19 07/17/19 07/17/19 Range/Units 05:09 05:33 06:03 WBC (4.5-11.0) K/mm3 RBC (3.65-5.03) M/mm3 Hgb (11.8-15.2) gm/dl Hct (35.5-45.6) % MCH (28-32) pg MCHC (32-34) % RDW (13.2-15.2) % Lymph % (Auto) (13.4-35.0) % Seg Neutrophils % (40.0-70.0) % Seg Neutrophils # (1.8-7.7) K/mm3 VBG pH (7.320-7.420) Sodium (137-145) mmol/L Potassium (3.6-5.0) mmol/L Chloride (98-107) mmol/L Carbon Dioxide (22-30) mmol/L BUN (9-20) mg/dL Creatinine (0.8-1.5) mg/dL Glucose (75-100) mg/dL POC Glucose 372 H 326 H (70-105) Hemoglobin A1c (4-6) % Calcium (8.4-10.2) mg/dL Phosphorus (2.5-4.5) mg/dL Magnesium 3.40 H (1.7-2.3) mg/dL Alkaline Phosphatase (35-129) units/L Total Creatine Kinase (55-170) units/L Total Protein (6.3-8.2) g/dL 07/17/19 07/17/19 07/17/19 Range/Units 06:53 07:10 08:26 WBC (4.5-11.0) K/mm3 RBC (3.65-5.03) M/mm3 Hgb (11.8-15.2) gm/dl Hct (35.5-45.6) % MCH (28-32) pg MCHC (32-34) % RDW (13.2-15.2) % Lymph % (Auto) (13.4-35.0) % Seg Neutrophils % (40.0-70.0) % Seg Neutrophils # (1.8-7.7) K/mm3 VBG pH (7.320-7.420) Sodium 160 H D (137-145) mmol/L Potassium (3.6-5.0) mmol/L Chloride 123.7 H (98-107) mmol/L Carbon Dioxide 20 L (22-30) mmol/L BUN 28 H (9-20) mg/dL Creatinine 1.7 H (0.8-1.5) mg/dL Glucose 340 H (75-100) mg/dL POC Glucose 339 H 243 H (70-105) Hemoglobin A1c (4-6) % Calcium (8.4-10.2) mg/dL Phosphorus (2.5-4.5) mg/dL Magnesium (1.7-2.3) mg/dL Alkaline Phosphatase (35-129) units/L Total Creatine Kinase (55-170) units/L Total Protein (6.3-8.2) g/dL // Range/Units 09:07 WBC (4.5-11.0) K/mm3 RBC (3.65-5.03) M/mm3 Hgb (11.8-15.2) gm/dl Hct (35.5-45.6) % MCH (28-32) pg MCHC (32-34) % RDW (13.2-15.2) % Lymph % (Auto) (13.4-35.0) % Seg Neutrophils % (40.0-70.0) % Seg Neutrophils # (1.8-7.7) K/mm3 VBG pH (7.320-7.420) Sodium (137-145) mmol/L Potassium (3.6-5.0) mmol/L Chloride (98-107) mmol/L Carbon Dioxide (22-30) mmol/L BUN (9-20) mg/dL Creatinine (0.8-1.5) mg/dL Glucose (75-100) mg/dL POC Glucose 231 H (70-105) Hemoglobin A1c (4-6) % Calcium (8.4-10.2) mg/dL Phosphorus (2.5-4.5) mg/dL Magnesium (1.7-2.3) mg/dL Alkaline Phosphatase (35-129) units/L Total Creatine Kinase (55-170) units/L Total Protein (6.3-8.2) g/dL - Imaging and Cardiology Chest x-ray: image reviewed (normal CXR) Assessment and Plan 23 y/o male with DKA, newly diagnosed diabetes 1. Continue insulin drip 2. Will changed fluids to D5 with potassium. This will help with Na 3. Repeat BMP at 1300 4. If anion GAP is closed can stop insulin drip after administration of long acting therapy and then feeding patient. CCT 31 minutes.
--- NOTE | 2019-07-17 11:53 | XRay Report ---
CHEST 1 VIEW INDICATION: Leukocytosis COMPARISON: None FINDINGS: Support devices: None Heart: Normal Lungs/Pleura: No acute pulmonary or pleural findings. IMPRESSION: 1. No acute disease. Signer Name: Oswaldo Alegria MD Signed: 07/17/2019 11:49 AM Workstation Name: [id number]
[2019-07-17 15:21] LABS: BUN/Creatinine Ratio 14; BUN/Creatinine Ratio 15; Blood Urea Nitrogen 21 mg/dL (9-20); Calcium 9.5 mg/dL (8.4-10.2); Hemolysis Index 13; Hemolysis Index 16
[2019-07-17] MEDS ORDERED: INSULIN GLARGINE 100 UNITS/ML SUB-Q ONE (16:46)
[2019-07-17] MEDS ORDERED: DEXTROSE 50% IN WATER (25GM) 50 ML SYRINGE IV PRN (16:47)
[2019-07-17] MEDS: INSULIN LISPRO 100 UNIT/ML SUB-Q SCH ×2 (17:00→20:59)
[2019-07-18] MEDS: INSULIN LISPRO 100 UNIT/ML SUB-Q SCH ×6 (01:34→22:01)
[2019-07-18 05:44] LABS: Hematocrit 51.7 % (35.5-45.6); Hemoglobin 16.8 gm/dl (11.8-15.2); Mean Corpuscular HGB Conc 32 % (32-34); Mean Corpuscular Volume 79 fl (84-94); Platelet Count 235 K/mm3 (140-440); Red Blood Count 6.52 M/mm3 (3.65-5.03); Red Cell Distribution Width 14.6 % (13.2-15.2)
[2019-07-18 06:12] LABS: BUN/Creatinine Ratio 16; Blood Urea Nitrogen 19 mg/dL (9-20); Calcium 9.7 mg/dL (8.4-10.2); Hemolysis Index 186
[2019-07-18] MEDS ORDERED: INSULIN GLARGINE 100 UNITS/ML SUB-Q SCH ×2 (08:00→22:00)
--- NOTE | 2019-07-18 08:14 | Progress Note ---
Assessment and Plan Assessment and plan: Patient is a 23 yo man without any chronic medical problems who presents to [facility] ED with polyuria, polydipsia and polyphagia. He was found to have new onset uncontrolled DM resulting in DKA. Hemoglobin A1C is 12.5 DKA /new onset diabetes/Metabolic acidosis treated DKA with insulin drip, IV fluids Monitor serial chemistries, hemoglobin A1c is 12.5 on basal/bolus regimen, adjust Insulin Elevated blood pressure without a history of hypertension Start IV hydralazine as needed If consistently elevated off NSS then start antihypertensive Acute renal insufficiency, vasomotor nephropathy resolved Hyperkalemia resolved SIRS, non infectious without organ dysfunction, poa with suspected reactive Leukocytosis and tachycardia CXR negative for acute finding follow blood culture UA was negative for infection Obesity, bmi 35.7 lifestyle modifications education done Hyponatremia due to hyperglycemia, now hypernatremic increase free water intake, stop NSS monitor bmp closely Disposition: continue inpatient care, transfer out of ICU, anticipate discharge in 1-2 days History Interval history: Patient was seen and examined. Follow-up on current diagnosis of DKA. No overnight events reported to me. Patient denies any chest pain, shortness breath, nausea/vomiting or severe headaches. Imaging, nursing note, chart, labs and old chart reviewed. Discussed with patient. Hospitalist Physical - Physical exam Narrative exam: Gen: WDWN, NAD, Awake, Alert, Orientated HEENT: NCAT, EOMI, PERRL, OP Clear Neck: supple, no adenopathy, no thyromegaly, no JVD CVS/Heart: Regular tachycardia, normal S1S2, pulses present bilaterally Chest/Lungs: CTA B, Symmetrical chest expansion, good air entry bilaterally GI/Abdomen: soft, NTND, good bowel sounds, no guarding or rebound /Bladder: no suprapubic tenderness, no CVA or paraspinal tenderness Extermity/Skin: no c/c/e, no obvious rash MSK: FROM x 4 Neuro: CN 2-12 grossly intact, no new focal deficits Psych: calm - Constitutional Vitals: Temp Pulse Resp BP Pulse Ox 98.4 F 85 16 153/101 96 07/18/19 03:31 07/18/19 06:00 07/18/19 06:00 07/18/19 06:00 07/17/19 22:00 General appearance: Present: no acute distress, well-nourished Results - Labs CBC & Chem 7: 07/18/19 04:25 07/18/19 04:25 Labs: Laboratory Last Values WBC 11.8 K/mm3 (4.5-11.0) H 07/18/19 04:25 RBC 6.52 M/mm3 (3.65-5.03) H 07/18/19 04:25 Hgb 16.8 gm/dl (11.8-15.2) H 07/18/19 04:25 Hct 51.7 % (35.5-45.6) H 07/18/19 04:25 MCV 79 fl (84-94) L 07/18/19 04:25 MCH 26 pg (28-32) L 07/18/19 04:25 MCHC 32 % (32-34) 07/18/19 04:25 RDW 14.6 % (13.2-15.2) 07/18/19 04:25 Plt Count 235 K/mm3 (140-440) 07/18/19 04:25 Lymph % (Auto) 8.3 % (13.4-35.0) L 07/16/19 21:36 [place] % (Auto) 5.6 % (0.0-7.3) 07/16/19 21:36 Eos % (Auto) 0.0 % (0.0-4.3) 07/16/19 21:36 Baso % (Auto) 0.5 % (0.0-1.8) 07/16/19 21:36 Lymph # 1.2 K/mm3 (1.2-5.4) 07/16/19 21:36 [place] # 0.8 K/mm3 (0.0-0.8) 07/16/19 21:36 Eos # 0.0 K/mm3 (0.0-0.4) 07/16/19 21:36 Baso # 0.1 K/mm3 (0.0-0.1) 07/16/19 21:36 Seg Neutrophils % 85.6 % (40.0-70.0) H 07/16/19 21:36 Seg Neutrophils # 12.2 K/mm3 (1.8-7.7) H 07/16/19 21:36 VBG pH 7.276 (7.320-7.420) L 07/16/19 21:36 Sodium 153 mmol/L (137-145) H 07/18/19 04:25 Potassium 4.9 mmol/L (3.6-5.0) D 07/18/19 04:25 Chloride 114.9 mmol/L (98-107) H 07/18/19 04:25 Carbon Dioxide 19 mmol/L (22-30) L 07/18/19 04:25 Anion Gap 24 mmol/L 07/18/19 04:25 BUN 19 mg/dL (9-20) 07/18/19 04:25 Creatinine 1.2 mg/dL (0.8-1.5) 07/18/19 04:25 Estimated GFR > 60 ml/min 07/18/19 04:25 BUN/Creatinine Ratio 16 % 07/18/19 04:25 Glucose 336 mg/dL (75-100) H 07/18/19 04:25 POC Glucose 273 (70-105) H 07/18/19 05:14 Hemoglobin A1c 12.5 % (4-6) H 07/16/19 23:46 Calcium 9.7 mg/dL (8.4-10.2) 07/18/19 04:25 Phosphorus 2.20 mg/dL (2.5-4.5) L 07/17/19 14:49 Magnesium 2.90 mg/dL (1.7-2.3) H 07/17/19 14:48 Total Bilirubin 0.30 mg/dL (0.1-1.2) 07/16/19 21:36 AST 35 units/L (5-40) 07/16/19 21:36 ALT 44 units/L (7-56) 07/16/19 21:36 Alkaline Phosphatase 144 units/L (35-129) H 07/16/19 21:36 Total Creatine Kinase 827 units/L (55-170) H 07/16/19 21:36 Total Protein 9.8 g/dL (6.3-8.2) H 07/16/19 21:36 Albumin 4.9 g/dL (3.9-5) 07/16/19 21:36 Albumin/Globulin Ratio 1.0 % 07/16/19 21:36 Lipase 38 units/L (13-60) 07/16/19 21:36 Urine Color Straw (Yellow) 07/16/19 23:07 Urine Turbidity Clear (Clear) 07/16/19 23:07 Urine pH 5.0 (5.0-7.0) 07/16/19 23:07 Ur Specific Bevier 1.028 (1.003-1.030) 07/16/19 23:07 Urine Protein 100 mg/dl mg/dL (Negative) 07/16/19 23:07 Urine Glucose (UA) >=500 mg/dL (Negative) 07/16/19 23:07 Urine Ketones Tr mg/dL (Negative) 07/16/19 23:07 Urine Blood Lg (Negative) 07/16/19 23:07 Urine Nitrite Neg (Negative) 07/16/19 23:07 Urine Bilirubin Neg (Negative) 07/16/19 23:07 Urine Urobilinogen < 2.0 mg/dL (<2.0) 07/16/19 23:07 Ur Leukocyte Esterase Neg (Negative) 07/16/19 23:07 Urine WBC (Auto) 1.0 /HPF (0.0-6.0) 07/16/19 23:07 Urine RBC (Auto) 5.0 /HPF (0.0-6.0) 07/16/19 23:07 Urine Bacteria (Auto) 1+ /HPF (Negative) 07/16/19 23:07 Urine Mucus Few /HPF 07/16/19 23:07 Active Medications - Current Medications Current Medications: Generic Name Dose Route Start Last Admin Trade Name Freq PRN Reason Stop Dose Admin Acetaminophen 650 mg 07/16/19 23:29 Tylenol PO Q4H PRN Pain MILD(1-3)/Fever >100.5/WANG Dextrose 50 ml 07/17/19 16:47 D50w (25gm) Syringe IV Q30MIN PRN Hypoglycemia Protocol Hydralazine HCl 5 mg 07/17/19 00:52 07/17/19 01:30 Apresoline IV 5 mg Q6H PRN Administration Hypertension Potassium Chloride 10 meq/ 1,005 mls @ 125 mls/hr 07/17/19 11:00 07/17/19 19:22 Dextrose IV 0 mls/hr DIRECT MARIAA Infusion Insulin Glargine 10 units 07/18/19 08:00 07/18/19 08:03 Lantus SUB-Q 10 units QAMDIAB MARIAA Administration Insulin Human Lispro 0 unit 07/17/19 17:00 07/18/19 05:29 Humalog SUB-Q 6 unit Q4H MARIAA Administration Protocol Ondansetron HCl 4 mg 07/16/19 23:29 Zofran IV Q8H PRN Nausea And Vomiting Sodium Chloride 10 ml 07/17/19 10:00 07/18/19 01:35 Sodium Chloride Flush Syringe 10 Ml IV 10 ml BID MARIAA Administration Sodium Chloride 10 ml 07/16/19 23:29 Sodium Chloride Flush Syringe 10 Ml IV PRN PRN LINE FLUSH Nutrition/Malnutrition Assess - Dietary Evaluation Nutrition/Malnutrition Findings: Nutrition Notes Start: 07/17/19 11:15 Freq: Status: Active Protocol: Document 07/17/19 11:15 KS (Rec: 07/17/19 11:50 KS [id number]) Co-Sign 07/17/19 11:15 KH Nutrition Notes Need for Assessment generated from: MD Order,Education Initial or Follow up Brief Note Current Diagnosis Diabetes Other Pertinent Diagnosis Obesity Current Diet NPO Labs/Tests A1c 12.5 Na 132 CO2 20 POC Glu 339 Pertinent Medications Reviewed Height 5 ft 8 in Weight 106.5 kg [place] Body Weight (kg) 70.00 BMI 35.6 Intake Prior to Admission Good Subjective/Other Information MD consult for Diet Education for new onset DM. Pt states he has had no previous DM education but did not wish to receive education at time of visit. CHO Counting for People with DM handout with RD phone number left at bedside. Nutrition Intervention Follow-Up By: 07/18/19 Additional Comments F/U for Diet Ed
--- NOTE | 2019-07-18 13:35 | Progress Note ---
Assessment and Plan 23 y/o male with DKA, newly diagnosed diabetes 1. needs more free water. Will defer to primary 2. No acute pulmonary issues 3. Will sign off. Subjective Date of service: 07/18/19 Interval history: Transferred out of ICU this am. Stable from a critical care standpoint. Objective - Constitutional Vitals: Vital Signs - 12hr 07/18/19 07/18/19 07/18/19 02:00 03:31 04:00 Temperature 98.4 F Pulse Rate 103 H 87 Pulse Rate [ From Monitor] Respiratory 16 16 Rate Blood Pressure 156/96 156/96 O2 Sat by Pulse Oximetry 07/18/19 07/18/19 07/18/19 06:00 08:00 08:14 Temperature 98.0 F Pulse Rate 85 77 Pulse Rate [ 96 H From Monitor] Respiratory 16 12 Rate Blood Pressure 153/101 154/96 O2 Sat by Pulse 97 99 Oximetry 07/18/19 07/18/19 07/18/19 08:20 08:30 08:40 Temperature Pulse Rate 121 H 132 H 133 H Pulse Rate [ From Monitor] Respiratory 22 18 15 Rate Blood Pressure 154/96 154/96 154/96 O2 Sat by Pulse 100 98 99 Oximetry 07/18/19 07/18/19 08:50 09:42 Temperature 99.3 F Pulse Rate 160 H 95 H Pulse Rate [ From Monitor] Respiratory 18 16 Rate Blood Pressure 154/96 150/96 O2 Sat by Pulse 98 Oximetry - Labs CBC & Chem 7: 07/18/19 04:25 07/18/19 04:25 Labs: Abnormal lab results 07/17/19 07/17/19 07/17/19 Range/Units 11:03 12:12 13:20 WBC (4.5-11.0) K/mm3 RBC (3.65-5.03) M/mm3 Hgb (11.8-15.2) gm/dl Hct (35.5-45.6) % MCV (84-94) fl MCH (28-32) pg Sodium (137-145) mmol/L Chloride (98-107) mmol/L Carbon Dioxide (22-30) mmol/L BUN (9-20) mg/dL Glucose (75-100) mg/dL POC Glucose 201 H 220 H 247 H (70-105) Phosphorus (2.5-4.5) mg/dL Magnesium (1.7-2.3) mg/dL 07/17/19 07/17/19 07/17/19 Range/Units 14:27 14:35 14:35 WBC (4.5-11.0) K/mm3 RBC (3.65-5.03) M/mm3 Hgb (11.8-15.2) gm/dl Hct (35.5-45.6) % MCV (84-94) fl MCH (28-32) pg Sodium 160 H 159 H (137-145) mmol/L Chloride 127.7 H 125.8 H (98-107) mmol/L Carbon Dioxide 18 L 19 L (22-30) mmol/L BUN 21 H 21 H (9-20) mg/dL Glucose 295 H 292 H (75-100) mg/dL POC Glucose 252 H (70-105) Phosphorus 2.20 L (2.5-4.5) mg/dL Magnesium 2.90 H (1.7-2.3) mg/dL 07/17/19 07/17/19 07/17/19 Range/Units 14:48 14:49 15:42 WBC (4.5-11.0) K/mm3 RBC (3.65-5.03) M/mm3 Hgb (11.8-15.2) gm/dl Hct (35.5-45.6) % MCV (84-94) fl MCH (28-32) pg Sodium (137-145) mmol/L Chloride (98-107) mmol/L Carbon Dioxide (22-30) mmol/L BUN (9-20) mg/dL Glucose (75-100) mg/dL POC Glucose 231 H (70-105) Phosphorus 2.20 L (2.5-4.5) mg/dL Magnesium 2.90 H (1.7-2.3) mg/dL 07/17/19 07/17/19 07/17/19 Range/Units 16:39 17:35 20:54 WBC (4.5-11.0) K/mm3 RBC (3.65-5.03) M/mm3 Hgb (11.8-15.2) gm/dl Hct (35.5-45.6) % MCV (84-94) fl MCH (28-32) pg Sodium (137-145) mmol/L Chloride (98-107) mmol/L Carbon Dioxide (22-30) mmol/L BUN (9-20) mg/dL Glucose (75-100) mg/dL POC Glucose 218 H 200 H 327 H (70-105) Phosphorus (2.5-4.5) mg/dL Magnesium (1.7-2.3) mg/dL 07/18/19 07/18/19 07/18/19 Range/Units 01:41 04:25 04:25 WBC 11.8 H (4.5-11.0) K/mm3 RBC 6.52 H (3.65-5.03) M/mm3 Hgb 16.8 H (11.8-15.2) gm/dl Hct 51.7 H (35.5-45.6) % MCV 79 L (84-94) fl MCH 26 L (28-32) pg Sodium 153 H (137-145) mmol/L Chloride 114.9 H (98-107) mmol/L Carbon Dioxide 19 L (22-30) mmol/L BUN (9-20) mg/dL Glucose 336 H (75-100) mg/dL POC Glucose 310 H (70-105) Phosphorus (2.5-4.5) mg/dL Magnesium (1.7-2.3) mg/dL 07/18/19 07/18/19 Range/Units 05:14 08:54 WBC (4.5-11.0) K/mm3 RBC (3.65-5.03) M/mm3 Hgb (11.8-15.2) gm/dl Hct (35.5-45.6) % MCV (84-94) fl MCH (28-32) pg Sodium (137-145) mmol/L Chloride (98-107) mmol/L Carbon Dioxide (22-30) mmol/L BUN (9-20) mg/dL Glucose (75-100) mg/dL POC Glucose 273 H 366 H (70-105) Phosphorus (2.5-4.5) mg/dL Magnesium (1.7-2.3) mg/dL Medications & Allergies - Medications Allergies/Adverse Reactions: Allergies No Known Allergies Allergy (Unverified 07/16/19 21:39) Home Medications: Home Medications Medication Instructions Recorded Confirmed Last Taken Type No Known Home Medications [No 07/17/19 07/17/19 Unknown History Reported Home Medications] Active Medications: Generic Name Dose Route Start Last Admin Trade Name Freq PRN Reason Stop Dose Admin Acetaminophen 650 mg 07/16/19 23:29 Tylenol PO Q4H PRN Pain MILD(1-3)/Fever >100.5/WANG Dextrose 50 ml 07/17/19 16:47 D50w (25gm) Syringe IV Q30MIN PRN Hypoglycemia Protocol Hydralazine HCl 5 mg 07/17/19 00:52 07/17/19 01:30 Apresoline IV 5 mg Q6H PRN Administration Hypertension Insulin Glargine 10 units 07/18/19 08:00 07/18/19 08:03 Lantus SUB-Q 10 units QAMDIAB MARIAA Administration Insulin Human Lispro 0 unit 07/17/19 17:00 07/18/19 13:01 Humalog SUB-Q 10 unit Q4H MARIAA Administration Protocol Insulin Human Lispro 8 unit 07/18/19 16:30 Humalog SUB-Q ACHS MARIAA Ondansetron HCl 4 mg 07/16/19 23:29 Zofran IV Q8H PRN Nausea And Vomiting Sodium Chloride 10 ml 07/17/19 10:00 07/18/19 13:01 Sodium Chloride Flush Syringe 10 Ml IV 10 ml BID MARIAA Administration Sodium Chloride 10 ml 07/16/19 23:29 Sodium Chloride Flush Syringe 10 Ml IV PRN PRN LINE FLUSH
[2019-07-18] MEDS ORDERED: DEXTROSE 50% IN WATER (25GM) 50 ML SYRINGE IV PRN (14:53)
--- NOTE | 2019-07-19 06:32 | Discharge Summary ---
Providers - Providers Date of Admission: 07/16/19 23:29 Date of discharge: 07/19/19 Attending physician: ASHISH AYERS 07/17/19 00:19 Consult to Dietitian/Nutrition [CONS] Routine Physician Instructions: Reason For Exam: Reason for Consult: Patient on ventilator Reason for Consult: Diet education Primary care physician: [employer] Hospitalization Condition: Stable Hospital course: Patient is a 23 yo man without any chronic medical problems who presents to [facility] ED with polyuria, polydipsia and polyphagia. He was found to have new onset uncontrolled DM resulting in DKA. Hemoglobin A1C is 12.5 DKA /new onset diabetes/Metabolic acidosis treated DKA with insulin drip, IV fluids Monitor serial chemistries, hemoglobin A1c is 12.5 on basal/bolus regimen, adjust Insulin Elevated blood pressure without a history of hypertension Start IV hydralazine as needed If consistently elevated off NSS then start antihypertensive Acute renal insufficiency, vasomotor nephropathy resolved Hyperkalemia resolved SIRS, non infectious without organ dysfunction, poa with suspected reactive Leukocytosis and tachycardia CXR negative for acute finding follow blood culture UA was negative for infection Obesity, bmi 35.7 lifestyle modifications education done Hyponatremia due to hyperglycemia, now hypernatremic increase free water intake, stop NSS monitor bmp closely Disposition: DC-01 TO HOME OR SELFCARE Time spent for discharge: 35 min Core Measure Documentation - Palliative Care Palliative Care/ Comfort Measures: Not Applicable - Core Measures Any of the following diagnoses?: none - VTE Discharge Requirements Deep Vein Thrombosis/Pulmonary Embolism Present on Admission: No Has pt received <5 days of overlap therapy or INR<2.0: No Anticoagulant overlap therapy prescribed at discharge: No Contraindication No Overlap Therapy order at DC: Not Indicated Exam - Physical Exam Narrative exam: Gen: WDWN, NAD, Awake, Alert, Orientated HEENT: NCAT, EOMI, PERRL, OP Clear Neck: supple, no adenopathy, no thyromegaly, no JVD CVS/Heart: Regular tachycardia, normal S1S2, pulses present bilaterally Chest/Lungs: CTA B, Symmetrical chest expansion, good air entry bilaterally GI/Abdomen: soft, NTND, good bowel sounds, no guarding or rebound /Bladder: no suprapubic tenderness, no CVA or paraspinal tenderness Extermity/Skin: no c/c/e, no obvious rash MSK: FROM x 4 Neuro: CN 2-12 grossly intact, no new focal deficits Psych: calm - Constitutional Vitals: Temp Pulse Resp BP Pulse Ox 98.1 F 87 18 145/96 100 07/18/19 23:31 07/18/19 23:31 07/18/19 23:31 07/18/19 23:31 07/18/19 23:31 Plan Activity: other (no strenous activity unless cleared by PCP) Diet: diabetic Special Instructions: record daily BP diary, record blood sugar diary (first thing in the morning/fasting and with meals) Durable Medical Equipment Needed Upon Discharge: other (Glucometer) Follow up with: [facility] [Provider Group] - 7 Days Prescriptions: Lispro Insulin [HumaLOG] 8 unit SUB-Q ACHS #1 pen Insulin Detemir [Levemir Flextouch] 12 unit SQ Q12H #1 insuln.pen Insulin Aspart (Nf) [NovoLOG Flexpen] 1 dose SQ AC PRN #1 pen PRN Reason: Hyperglycemia
[2019-07-19 07:00] VITALS: BP 137/82
[2019-07-19] MEDS ORDERED: INSULIN GLARGINE 100 UNITS/ML SUB-Q SCH (07:00)
[2019-07-19] MEDS: INSULIN LISPRO 100 UNIT/ML SUB-Q SCH (08:00)
[2019-07-19 09:41] LABS: Hematocrit 45.7 % (35.5-45.6); Hemoglobin 14.8 gm/dl (11.8-15.2); Mean Corpuscular HGB Conc 33 % (32-34); Mean Corpuscular Volume 80 fl (84-94); Platelet Count 198 K/mm3 (140-440); Red Blood Count 5.72 M/mm3 (3.65-5.03); Red Cell Distribution Width 14.3 % (13.2-15.2)
[2019-07-19 10:00] LABS: BUN/Creatinine Ratio 21; Blood Urea Nitrogen 19 mg/dL (9-20); Calcium 9.4 mg/dL (8.4-10.2); Hemolysis Index 31
== END 2019-07-19 11:30 | disposition home or self-care (01) | DRG 682 ==
LOC: ED 19:43 → CC1 23:29 → 3A 07-18 10:10
PROVIDERS: ADMIT Internal Medicine; ATTEND Internal Medicine
DX: N17.0 Acute kidney failure with tubular necrosis (principal); E11.10 Type 2 diabetes mellitus with ketoacidosis without coma; R65.10 Systemic inflammatory response syndrome (SIRS) of non-infectious origin without acute organ dysfunction; E87.1 Hypo-osmolality and hyponatremia; E87.5 Hyperkalemia; I10 Essential (primary) hypertension; E66.9 Obesity, unspecified; Z68.35 Body mass index [BMI] 35.0-35.9, adult; Z82.49 Family history of ischemic heart disease and other diseases of the circulatory system; Z83.3 Family history of diabetes mellitus
CPT/HCPCS: 36415; 71045; 80048; 80053; 81001; 82550; 82805; 82962; 83036; 83690; 83735; 84100; 85025; 85027; 87040; 93005; 93010; G0378; J0360; J1815; J3480; J7030; J7070